=== PATIENT | male | born 1970 | race Caucasian/White ===

== ENCOUNTER 2022-11-30 11:48 | Emergency (ER) | payer OTHER, SELFPAY ==
--- NOTE | ~2022-11-30 | XR_ITS ---
AP, oblique, and lateral views of the left third toe CLINICAL HISTORY: Injury FINDINGS: No fracture or dislocation seen. Osseous alignment is unremarkable. Joint spaces are preser leroy. Soft tissues are unremarkable. IMPRESSION: Unremarkable exam. Reviewed, dictated and finalized at location . IMPRESSION: Unremarkable exam.
[2022-11-30 11:57] VITALS: BP 132/94; PULSE 94; RESP 16; TEMP 36.3; O2SAT 100
--- NOTE | 2022-11-30 11:59 | ED.LOWEXIN ---
HPI - Extremity Injury (Lower) General Chief Complaint: Extremity Injury, Lower Stated Complaint: Injured middle toe on left foot Source: patient and RN notes reviewed Mode of arrival: ambulatory Limitations: no limitations History of Present Illness HPI Narrative: Patient is a 52-year-old male who presents to the [facility] with complaints left middle toe pain. Patient states that he accidentally kicked a brick stair when walking into his house. Patient states that he was not wearing shoes at the time. He reports constant aching and throbbing to the left middle toe. There is notable bruising to the toe and slight swelling. Sensation is intact and he denies numbness. Cap refill is normal. Related Data Home Medications Medication Instructions Recorded Confirmed No Home Medications 11/30/22 11/30/22 Allergies Allergy/AdvReac Type Severity Reaction Status Date / Time No Known Allergies Allergy Verified 11/30/22 12:07 Review of Systems Review of Systems: CONSTITUTIONAL: Denies fever, chills, or sweats. EYES: Denies visual changes, redness, or discharge. ENT: Denies otalgia and sore throat CARDIOVASCULAR: Denies chest pain, palpitations, or edema. RESPIRATORY: Denies cough or dyspnea. GASTROINTESTINAL: Denies abdominal pain, nausea, vomiting, or diarrhea. GENITOURINARY: Denies dysuria or hematuria. SKIN: Denies rash or itching. MUSCULOSKELETAL: Denies back pain or myalgia. Reports left middle toe pain. NEUROLOGIC: Denies headache, numbness, or weakness. Pertinent positives per HPI. PMFSH Comments At the time of my signature, I reviewed and agree with the nursing past medical, surgical, social, and family history. There is no relevant family history pertinent to the patient complaint. Exam Narrative: GENERAL: This is a well-nourished, well-developed patient, in no apparent distress. HEAD: normocephalic, atraumatic. EYES: PERRL. Sclera clear/white. Vision is grossly intact. EARS: External ears normal, auditory canals clear and without drainage, TMs normal without perforation. Hearing grossly intact. NOSE: External nose normal with no obvious nasal discharge, nares without redness, no rhinorrhea. THROAT: Mucous membranes moist, posterior pharynx clear. NECK: Neck supple, non-tender without lymphadenopathy, masses or thyromegaly. CARDIOVASCULAR: Regular rate and rhythm without murmurs, gallops, or rubs. RESPIRATORY: Clear to auscultation. Breath sounds equal bilaterally. No wheezes, rales, or rhonchi. GASTROINTESTINAL: Abdomen soft, non-tender, nondistended. Bowel sounds are active. No hepato-splenomegaly, or palpable masses. No guarding. SKIN: warm, intact with no suspicious lesions or rash, good texture and turgor. NEURO: awake, alert, and oriented to person, place and time. There were no obvious focal neurologic abnormalities. EXTREMITIES: No clubbing, cyanosis, or edema. Left middle toe tenderness, bruising, and mild swelling. Limited ROM of the left middle toe. Cap refill is normal. Sensation intact. BACK: Nontender without deformity or crepitance. No flank tenderness. Course Course Level of Care: Express Care Visit Vital Signs Vital signs: Vital Signs Temperature 97.4 F L 11/30/22 11:57 Pulse Rate 94 11/30/22 11:57 Respiratory Rate 16 11/30/22 11:57 Blood Pressure 132/94 H 11/30/22 11:57 Pulse Oximetry 100 11/30/22 11:57 Temperature 97.4 F L 11/30/22 11:57 Pulse Rate 94 11/30/22 11:57 Respiratory Rate 16 11/30/22 11:57 Blood Pressure 132/94 H 11/30/22 11:57 Pulse Oximetry 100 11/30/22 11:57 Oxygen Delivery Room Air 11/30/22 12:00 Reviewed MDM - Extremity Injury (Lower) MDM Narrative Medical decision making narrative: Use the RICE method at home. May take ibuprofen and/or Tylenol if needed. If symptoms persist in 1 week after conservative treatment, follow-up with specialist. Differential Diagnosis Differential diagnosis: Likely fracture of toe and othe
== END 2022-11-30 12:41 | disposition home or self-care (01) ==
PROVIDERS: Emergency Provider Nurse Practitioner; PCP Internal Medicine
DX: S90.122A Contusion of left lesser toe(s) without damage to nail, initial encounter (principal); W22.09XA Striking against other stationary object, initial encounter
CPT/HCPCS: 73660; 99213; G0463

== ENCOUNTER 2023-01-30 00:45 | Day surgery (SDC) | payer OTHER, SELFPAY ==
[2023-01-20 16:41] VITALS: BMI 23.8
--- NOTE | 2023-01-30 08:17 | WPDANESEPPF ---
Anes - Initial Pre Proc Eval Procedure: Operation Date: 01/30/23 09:30 Proposed Procedures p Colonoscopy - Akbar Washburn MD Date/Time: 01/30/23 08:17 Surgeon: Akbar Washburn MD Pre Op Diagnosis: family hx colon ca Patient Data Age: 52 Gender: M Height: 1.91 m Weight: 86.5 kg Allergies Allergy/AdvReac Type Severity Reaction Status Date / Time No Known Allergies Allergy Verified 01/30/23 08:23 Home Medications Medication Instructions Recorded Confirmed Type tadalafil 20 mg tablet (Cialis) 20 mg PO DAILY PRN sexual activity 12/08/22 01/30/23 Rx #8 tabs rosuvastatin 5 mg tablet 5 mg PO DAILY #90 tabs 01/03/23 01/30/23 Rx Adrenatone 1 dose PO DAILY 01/20/23 01/30/23 History Chrysin 1 dose PO DAILY 01/20/23 01/30/23 History Prostate Ute 1 cap PO DAILY 01/20/23 01/30/23 History Vitamin D2 1 dose PO DAILY 01/20/23 01/30/23 History arginine (L-arginine) 1 dose PO DAILY 01/20/23 01/30/23 History omega-3 fatty acids 1 cap PO DAILY 01/20/23 01/30/23 History zinc 1 dose PO DAILY 01/20/23 01/30/23 History Patient hx anesthesia problems: none Family hx anesthesia problems: none Results Review: All pre-operative results and documents have been reviewed as part of the pre-operative evaluation. [facility] Past Medical History Medical History (Updated 01/30/23 @ 08:22 by Akbar Washburn MD) GERD (gastroesophageal reflux disease) Hyperlipidemia Hypertension Migraine Surgical History Surgical History H/O knee surgery History of appendectomy Undescended testicle Family History Family History Father Hypertension Cerebrovascular accident Heart disease Mother Colon cancer Grandparent Alcoholism Cerebrovascular accident Breast cancer Testicle cancer Social History Social History Years smoked: 13 Smoking status: Former smoker Tobacco type: smokeless tobacco Smokeless tobacco user: chewing tobacco Smoking end date: 05/22/06 Alcohol intake: current Substance use: never Substance use type: does not use Lack of Transportation: No Lack of Food: Never True Current Housing: I Have Housing Concerned About Future Housing: No Difficulty Paying Gas/Electric Bills: No Difficulty Paying for Meds: No Currently Unemployed: No Education: Associate Degree Difficulty w/ Childcare or Family Care: No Living arrangements: with family Spiritual care concerns: No Anes - Eval Final PreProcedure Day of Procedure 01/30/23 08:17 Patient weight: normal Heart: regular rate and rhythm Lungs: clear to auscultation and normal air movement Airway: Mallampati scale class II Neurological: alert and oriented Last oral intake: >/= 8 hours ASA classification: II Emergent: no Anesthetic plan: proceed Anesthesia type and monitoring: general GIVS and standard monitoring Results Review: All pre-operative results and documents have been reviewed as part of the pre-operative evaluation. Informed Consent: The patient's anesthetic plan and its attendant risks and benefits were discussed with the patient/family/POA. Questions were solicited and answers provided to the satisfaction of the patient/family/POA.
--- NOTE | 2023-01-30 08:20 | PM.HPGS ---
History of Present Illness History of Present Illness Consent: Risks, benefits, and alternatives have been discussed and questions answered. Patient agrees to proceed with procedure. Chief complaint: family hx colon ca Narrative: Fred Nguyễn is a 52 year old male Presents for screening colonoscopy. Patient reports his mother had colon cancer. Patient states that his own weight appetite and bowel movements are normal. He denies abdominal pain. He has had no bleeding. Review of Systems Review of Systems: Review of systems noncontributory. [facility] Past Medical History Medical History (Updated 01/30/23 @ 08:22 by Akbar Washburn MD) GERD (gastroesophageal reflux disease) Hyperlipidemia Hypertension Migraine Surgical History Surgical History H/O knee surgery History of appendectomy Undescended testicle Family History Family History Father Hypertension Cerebrovascular accident Heart disease Mother Colon cancer Grandparent Alcoholism Cerebrovascular accident Breast cancer Testicle cancer Social History Social History Years smoked: 13 Smoking status: Former smoker Tobacco type: smokeless tobacco Smokeless tobacco user: chewing tobacco Smoking end date: 05/22/06 Alcohol intake: current Substance use: never Substance use type: does not use Lack of Transportation: No Lack of Food: Never True Current Housing: I Have Housing Concerned About Future Housing: No Difficulty Paying Gas/Electric Bills: No Difficulty Paying for Meds: No Currently Unemployed: No Education: Associate Degree Difficulty w/ Childcare or Family Care: No Living arrangements: with family Spiritual care concerns: No Meds Home Medications and Allergies Home Medications Medication Instructions Recorded Confirmed Type tadalafil 20 mg tablet (Cialis) 20 mg PO DAILY PRN sexual activity 12/08/22 01/20/23 Rx #8 tabs rosuvastatin 5 mg tablet 5 mg PO DAILY #90 tabs 01/03/23 01/20/23 Rx Adrenatone 1 dose PO DAILY 01/20/23 01/20/23 History Chrysin 1 dose PO DAILY 01/20/23 01/20/23 History Prostate Noonday 1 cap PO DAILY 01/20/23 01/20/23 History Vitamin D2 1 dose PO DAILY 01/20/23 01/20/23 History arginine (L-arginine) 1 dose PO DAILY 01/20/23 01/20/23 History omega-3 fatty acids 1 cap PO DAILY 01/20/23 01/20/23 History zinc 1 dose PO DAILY 01/20/23 01/20/23 History Allergies Allergy/AdvReac Type Severity Reaction Status Date / Time No Known Allergies Allergy Verified 01/30/23 08:23 Exam Narrative: Physical exam reveals patient to be alert. Vital signs stable. HEENT exam is unremarkable. Patient is anicteric. Lungs are clear to auscultation and percussion. Heart is without murmur or extra sounds. Abdomen bowel sounds are present soft nontender with no organomegaly. Digital external rectal exam is normal. Assessment and Plan Assessment and plan (1) Encounter for screening colonoscopy: Code(s): Z12.11 - Encounter for screening for malignant neoplasm of colon Status: Acute (2) Family history of colon cancer in mother: Code(s): Z80.0 - Family history of malignant neoplasm of digestive organs Status: Acute Assessment and Plan: Patient's mother has had colon cancer. For this reason patient presents for screening colonoscopy. Advised colonoscopy at 5 year intervals. Further recommendations may be given after endoscopy.
[2023-01-30 08:24] VITALS: BP 127/81; PULSE 80; RESP 17; TEMP 36.2; O2SAT 100; BMI 22.8
[2023-01-30] MEDS: LACTATED RINGERS 1,000 ML 150 ML IV CONT (08:31)
[2023-01-30 09:37] VITALS: BP 129/86; PULSE 79; RESP 18; O2SAT 100
[2023-01-30 09:47] VITALS: BP 148/79; PULSE 76; RESP 19; O2SAT 100
[2023-01-30 09:57] VITALS: BP 126/82; PULSE 60; RESP 21; O2SAT 100
== END 2023-01-30 10:03 | disposition home or self-care (01) ==
PROVIDERS: PCP Physician Assistant; Visit Provider Internal Medicine Gastroenterology
PROC: 0DJD8ZZ Inspection of Lower Intestinal Tract, Via Natural or Artificial Opening Endoscopic (ICD-10-PCS; CPT 45378; principal; 2023-01-30 09:30)
DX: Z12.11 Encounter for screening for malignant neoplasm of colon (principal); K64.8 Other hemorrhoids; K21.9 Gastro-esophageal reflux disease without esophagitis; E78.5 Hyperlipidemia, unspecified; I10 Essential (primary) hypertension; F17.220 Nicotine dependence, chewing tobacco, uncomplicated; Z80.0 Family history of malignant neoplasm of digestive organs
CPT/HCPCS: 45378; J2704; J7120

== ENCOUNTER 2023-09-18 10:36 | Outpatient (CLI) | payer OTHER, SELFPAY | END 2023-09-18 10:37 | disposition home or self-care (01) | PROVIDERS: PCP Physician Assistant; Visit Provider Otolaryngology | DX: H90.3 Sensorineural hearing loss, bilateral (principal); H61.23 Impacted cerumen, bilateral; J31.0 Chronic rhinitis | CPT/HCPCS: 92557; 92567 ==

== ENCOUNTER 2023-12-13 12:00 | Emergency (ER) | payer OTHER, SELFPAY ==
--- NOTE | 2023-12-13 12:06 | ED.URI ---
HPI - URI/Sore Throat General Chief Complaint: Upper Respiratory Infection Stated Complaint: SINUS CONGESITON Time Seen by Provider: 12/13/23 12:18 Source: patient and RN notes reviewed Mode of arrival: ambulatory Limitations: no limitations History of Present Illness HPI Narrative: 53-year-old male presents with concern for sinus pain, oral/gingival and that started yesterday. He reports he has a headache. He reports mild runny nose. Reports body aches. Denies cough, fever, chills, sweats. Reports he took Benadryl without relief. MD elicited complaint: sinus pain Related Data Allergies Allergy/AdvReac Type Severity Reaction Status Date / Time No Known Allergies Allergy Verified 12/13/23 12:17 Review of Systems Review of Systems: CONSTITUTIONAL: Denies malaise, chills, sweats, or fever. EYES: Denies visual changes, redness, or discharge. ENT: Reports rhinorrhea, pain. Denies congestion, otalgia and sore throat. CARDIOVASCULAR: Denies chest pain, palpitations, or edema. RESPIRATORY: Denies cough. Denies dyspnea. GASTROINTESTINAL: Denies abdominal pain, nausea, vomiting, diarrhea SKIN: Denies rash or itching. MUSCULOSKELETAL: Reports myalgia. NEUROLOGIC: Denies headache. All systems reviewed & are unremarkable except as noted in HPI and below PMFSH Past Medical History Medical History GERD (gastroesophageal reflux disease) Hyperlipidemia Hypertension Migraine Surgical History Surgical History H/O knee surgery History of appendectomy Undescended testicle Family History Family History Father Hypertension Cerebrovascular accident Heart disease Mother Colon cancer Grandparent Alcoholism Cerebrovascular accident Breast cancer Testicle cancer Social History Social History Years smoked: 13 Smoking status: Former smoker Tobacco type: smokeless tobacco Smokeless tobacco user: chewing tobacco Smoking end date: 05/22/06 Alcohol intake: current Substance use: never Substance use type: does not use Lack of Transportation: No Lack of Food: Never True Current Housing: I Have Housing Concerned About Future Housing: No Difficulty Paying Gas/Electric Bills: No Difficulty Paying for Meds: No Currently Unemployed: No Education: Associate Degree Difficulty w/ Childcare or Family Care: No Living arrangements: with family Spiritual care concerns: No Comments At time of signature, agree with nursing past medical, surgical, social and family history. There is no relevant family history pertinent to the presenting complaint Exam Narrative: GENERAL: Well-appearing, well-nourished, and in no acute distress. HEAD: Normocephalic EYES: PERRLA, conjunctivae clear ENT: Nares clear, turbinates edematous and erythematous. Mucous membranes moist. TM pearly hagan with dull light reflex bilaterally; no tragal tenderness. Oropharynx not erythematous without lesions. Tonsils not enlarged and without exudate, no drooling, no hoarseness, no trismus, uvula midline. NECK: Supple. No lymphadenopathy CHEST: Clear to auscultation, breath sounds equal. No wheezing, rhonchi, rales, or stridor. No respiratory distress, speaks in full sentences. HEART: Regular rate and rhythm. No murmur heard. SKIN: Warm, dry, no rash. NEURO: Alert and oriented x3. PSYCH: Normal mood and affect Course Course Emergency Course: Patient is aware of diagnosis, understands and agrees to treatment plan. Anticipatory guidance given. Patient agrees to follow-up as directed and is aware of reasons to seek care at the emergency department. Portions of this record may have been created with voice recognition software Level of Care: Express Care Visit Vital Signs Vital signs: Reviewed. MDM
[2023-12-13 12:12] VITALS: BP 136/90; PULSE 106; RESP 16; TEMP 36.9; O2SAT 100
== END 2023-12-13 12:44 | disposition home or self-care (01) ==
PROVIDERS: Emergency Provider Nurse Practitioner; PCP Physician Assistant
DX: J06.9 Acute upper respiratory infection, unspecified (principal); Z20.822 Contact with and (suspected) exposure to COVID-19; Z87.891 Personal history of nicotine dependence; K21.9 Gastro-esophageal reflux disease without esophagitis; E78.5 Hyperlipidemia, unspecified; I10 Essential (primary) hypertension
CPT/HCPCS: 87426; 99213; G0463

== ENCOUNTER 2024-09-04 00:09 | Day surgery (SDC) | payer OTHER, SELFPAY ==
[2024-08-29 12:53] VITALS: BMI 23.4
--- NOTE | 2024-08-29 12:59 | PC.NURSE ---
Report to the Outpatient Waiting Room, entrance under the green pavilion located off [facility], at time _1pm_ on date _[id number]_. Planned Procedure Time: _2pm_.? Time changes happen often and if your time is changed the preop area will call you the afternoon before. - You and your visitor will be asked to self-screen and do not enter if you have any COVID symptoms. Please call surgeon if you need to reschedule. - A mask is optional within the hospital at this time. No smoking, or chewing tobacco (or any form of nicotine). Ok for breakfast and a light lunch. Take only the following medications with a SIP of water on the morning of surgery: ___Continue medications as usual.____ DO NOT STOP ANY OF YOUR OTHER PRESCRIPTION MEDICATIONS PRIOR TO SURGERY EXCEPT THE FOLLOWING Medications to discontinue per physician Date to take last dose Please no make-up, nail georgian, hairspray, perfume, deodorant, or body powder the day of surgery.? No jewelry (including any body piercings) or valuables the day of surgery, leave them at home.? Please take a shower or bath the night before, or the morning of, surgery with an antibacterial soap.? Wear comfortable, loose fitting clothing.? - Jewelry must be removed prior to entering the operating room.? Rings and piercings that are not removed may be cut off. - The hospital will not accept responsibility for valuables.? - Please leave all valuables, including medications, at home the day of surgery. If you are going home after surgery, a licensed professional driver must drive you home.? - NO public transportation without another adult if you receive anesthesia. - We recommend that an adult stay with you for 24 hours following discharge. - We also recommend that you do not drive, make important decision, drink alcoholic beverages, or take any drugs that were not prescribed by your health care provider for at least 24 hours after your discharge time. Follow any additional instructions given to you from your surgeon. Telephone instructions given to __Greg__and asked if any additional questions and then verbalized understanding. Patient advised to call surgeon office or pre surgery nurse liaison [phone] if any additional questions.
--- OUTSIDE RECORDS SUMMARY | 2024-09-04 00:12 | XMS_ITS | Continuity of Care Document ---
Author Organization [facility] Address [address] [place] [address] Phone Care Team Providers Care Auto Service Representative Name Role Phone Unavailable Unavailable Unavailable Advance Directives Directive Yes / No Effective Date File Name No Information Encounters Encounter Description Practice Location Reason(s) For Visit Diagnoses Date Provider Providers Copied on Encounter [facility], [address], [place], [id number], [place] tel:[phone] [facility] No Information 9200 4 No Information Family History Family Member Type Diagnosis Age At Onset No Information Payers Payer name Insurance type Covered green party ID Authoriza tion(s) No Information Social History Type Description Quantity Date Captured Comments Sex Male Smoking Status No Information Chief Complaint And Reason For Visit No Information Reason For Referral Reason For Referral No Information History Of Present Illness Encounter Date Complaint History Of Prese nt Illness No Information Functional Status Date Functional Assessmen t No Information Instructions Date Instruction Additional Infor mation No Information Assessments Type Assessment Date No Information Patient Care Teams Name Effective Dates (start - stop) Status Members No Information
--- OUTSIDE RECORDS SUMMARY | 2024-09-04 00:12 | XMS_ITS | Referral Summary ---
Author Organization [facility] Address [address] [place] [address] Care Team Providers Care Legal Support Assistant Name Role Phone No, Physician Primary Care Provider [phone] Allergies No known active allergies Medications amoxicillin-cla vulanate (AUGMENTIN) 875-125 mg per tablet take 1 tablet by oral route every 12 hours 14 0 6 Active fluticasone (FLONASE) 50 mcg/actuation nasal spray inhale 1 spray by intranasal route 2 times every day in each nostril as needed 1 Bottle 0 6 Active Active Problems No known active problems Immunizations Immunization Administration Dates Next Due Influenza, Quadrivalent, Spl it, Preservative Free, Intramuscular 05/01/2019 Social History Tobacco Use Types Packs/Day Years Used Date Smoking Tobacco: Never Assessed Sex and Gender Information Value Date Recorded Sex Assigned at Not on file 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[employer] Gender Identity Not on file Sexual Orientation Not on file Last Filed Vital Signs Vital Sign Reading Time Taken Comments Blood Pressure 140/90 01/02/2016 6:19 PM CDT Pulse 80 01/02/2016 6:19 PM CDT Temperature - - Respiratory Rate - - Oxygen Saturation 99% 01/02/2016 6:19 PM CDT Inhaled Oxygen Concentration - - Weight 84.4 kg (186 lb) 01/02/2016 6:19 PM CDT Height 190.5 cm (6' 3 ) 01/02/2016 6:19 PM CDT Body Mass Index 23.25 01/02/2016 6:19 PM CDT Plan of Treatment Not on file Insurance [employer] [facility] Care Teams Legal Support Assistant Relationship Specialty Start Date End Date No, Physician PCP - General 05/01/19
--- OUTSIDE RECORDS SUMMARY | 2024-09-04 00:12 | XMS_ITS | Encounter Summary ---
Author Organization [facility] Address [address] [place] [address] Phone Care Team Providers Care Postal Transportation Clerk Name Role Phone Albina Carrion MD Primary Care Provider [phone] Manny Lagos MD Primary Care Provider [phone] Reason for Visit * Reason Comments Medication Refill Encounter Details Date Type Department Care Team (Late st Contact Info) Description 09/09/2021 Refill [facility] - Primary Care - [place] [address] [place] [address] Albina Carrion MD [address] [place] [address] Medication Refill Social History Tobacco Use Types Packs/Day Years Used Date Smoking Tobacco: Never Smokeless Tobacco: Former Chew Quit: 09/15/2007 Alcohol Use Standard Drinks/Week Comments Yes 4 (1 standard drink = 0.6 oz pur e alcohol) PHQ-2 Answer Date Recorded Total Score - Questions 1-9 0 10/21 Sex and Gender Information Value Date Recorded Sex Assigned at Not on file Legal Sex Male 12:18 PM CDT Gender Identity Not on file Sexual Orientation Not on file COVID-19 Exposure Response Date Recorded In the last 10 days, have yo u been in contact with someone who was confirmed or suspected to have Coronavirus/COVID-19? No / Unsure 09/06/2021 3:03 PM CDT documented as of this encounter Miscellaneous Notes * Telephone Encounter - Glo Flores RN - 09/09/2021 8:14 AM CDT Medication failed the protocol, provider to review and approve the medication order if appropriate. Requested Prescriptions Pending Prescriptions Disp Refills Tadalafil, PAH, 20 MG Tablet [Pharmacy Med Name: TADALAFIL 20 MG TABLET] 3 Tablet 5 Sig: TAKE 1 TAB BY MOUTH DAILY NEEDED FOR ERECTILE DYSFUNCTION. Not Delegated - Phosphodiesterase Inhibitors-Pulmonary Hypertension Protocol Failed - 09/09/2021 6:21 AM Failed - This refill cannot be delegated Failed - Active on medication list Passed - Visit with relevant provider in past 12 months or upcoming 90 days Recent Visits Date Type Provider Dept 09/06/21 Office Visit Albina Carrion MD [facility] Showing recent visits within past 365 days and meeting all other requirements Future Appointments No visits were found meeting these conditions. Showing future appointments within next 90 days and meeting all other requirements documented in this encounter Plan of Treatment Not on file documented as of this encounter Visit Diagnoses Diagnosis Erectile dysfunction, unspecified erectile dysfunction type documented in this encounter Additional Health Concerns Assessment Noted Time PHQ-9 Depression Total Score: 0 11/11/19 8:00 AM CDT documented as of this encounter Care Teams Postal Transportation Clerk Relationship Specialty Start Date End Date Albina Carrion MD [address] [place] [address] PCP - General Family Medicine 09/14/18 08/21/22 Manny Lagos MD [address] [address] PCP - General Internal Medicine 08/22/22 documented as of this encounter
--- OUTSIDE RECORDS SUMMARY | 2024-09-04 00:12 | XMS_ITS | Clinical Summary ---
Author Organization [facility] Address [address] [place] [address] Phone Care Team Providers Care Educational Sign Language Interpreter Name Role Phone Manny Lagos MD Primary Care Provider [phone] Allergies No known active allergies Medications Tadalafil, PAH, 20 MG TabletIndication s:Erectile dysfunction, unspecified erectile dysfunction type Take 20 mg by mouth daily as needed (Erectile dysfunction ). 30 Tablet 5 08/22/2022 Active Active Problems Problem Noted Date Diagnosed Date Anxiety 05/12/2020 H/O: hypertension 09/14/2018 Erectile dysfunction 09/14/2018 Mixed hyperlipidemia 09/14/2018 Immunizations Immunization Administration Dates Next Due Covid-19, Mrna, Lnp-s, Pf, 3 0 Mcg/0.3 Ml Dose, Royce-sucrose (Pfizer ochoa top) 10/26/2021 Influenza Vaccine, Quadrivalent, PF 02/06/2020,1 07/02/2018 TDAP Vaccine 11/11/2019 Family History Medical History Relation Name Comments Dementia Father Hypertension Father Stroke Father Colon Cancer Mother Cancer Paternal Uncle Colon Relation Name Status Comments Father Mother Alive Paternal Uncle Alive Social History Tobacco Use Types Packs/Day Years Used Date Smoking Tobacco: Never Smokeless Tobacco: Former Chew Quit: 09/15/2007 Alcohol Use Standard Drinks/Week Comments Not Currently 0 (1 standard drink = 0.6 oz pur e alcohol) PHQ-2 Answer Date Recorded Total Score - Questions 1-9 0 04/0 07/2022 Sex and Gender Information Value Date Recorded Sex Assigned at Not on file Legal Sex Male 12:18 PM CDT Gender Identity Not on file Sexual Orientation Not on file Last Filed Vital Signs Vital Sign Reading Time Taken Comments Blood Pressure 140/80 08/22/2022 2:03 PM CDT Pulse 104 08/22/2022 2:03 PM CDT Temperature 36.4 C (97.5 F) 08/22/2022 2:03 PM CDT Respiratory Rate 18 08/22/2022 2:03 PM CDT Oxygen Saturation 98% 08/22/2022 2:03 PM CDT Inhaled Oxygen Concentration - - Weight 85.3 kg (188 lb) 08/22/2022 2:03 PM CDT Height 190.5 cm (6' 3 ) 08/22/2022 2:03 PM CDT Body Mass Index 23.5 08/22/2022 2:03 PM CDT Plan of Treatment Health Maintenance Due Date Last Done Comments Hepatitis C Virus (HCV) Screening 1970 Hepatitis B Immunization (1 of 3 - 19+ 3-dose series) 1989 Colonoscopy 2015 Colorectal Cancer Screening 2015 Cologuard 2020 Immunochemical Fecal Occult Blood 2020 Pneumococcal Immunization (5 0+ years) (1 of 1 - PCV) 2020 Zoster Immunization (1 of 2) 2020 Influenza Immunization (#1) 01/21/202401/20, 05/01/2019 SARS-COV-2 Immunization ( season) 2024 10/26/2021, 09/16/2020, 08/24/2020 Respiratory Syncytial Virus (RSV) Immunization (Adult) (1 - 1-dose 75+ series) 2045 DTaP/Tdap/Td Immunization Discontinued 11/11/2019 Meningococcal Immunization (ACWY) Aged Out No longer eligible based on patient's age to complete this topic Rotavirus Immunization Aged Out No lo nger eligible based on patient's age to complete this topic Insurance [facility] [address] [id number] [facility] Care Teams Educational Sign Language Interpreter Relationship Specialty Start Date End Date Manny Lagos MD [address] [address] PCP - General Internal Medicine 08/22/22
--- OUTSIDE RECORDS SUMMARY | 2024-09-04 00:12 | XMS_ITS | Clinical Summary ---
Author Organization [facility] Address [address] [place] [address] Care Team Providers Care Bull Ladle Tender Name Role Phone No, Physician Primary Care Provider [phone] Allergies No known active allergies Medications amoxicillin-cla [...] Quadrivalent, Spl it, Preservative Free, Intramuscular 05/01/2019 Surgical History Surgery Date Site/Laterality Comments HERNIA REPAIR Hernia repair APPENDECTOMY Appendectomy Family History Medical History Relation Name Comments Cancer Other Family history of Cancer, unknown; Hypertension Other Family history of Hypertension; Relation Name Status Comments Other Social History Tobacco Use Types Packs/Day Years Used Date Smoking Tobacco: Never Assessed Sex and Gender Information Value Date Recorded Sex Assigned at Not on file 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
--- OUTSIDE RECORDS SUMMARY | 2024-09-04 00:12 | XMS_ITS | Encounter Summary ---
Author Organization [facility] Address [address] [place] [address] Phone Care Team Providers Care Tai Chi Instructor Name Role Phone Albina Carrion MD Primary Care Provider Manny Lagos MD Primary Care Provider [phone] Reason for Visit * Reason Comments Medication Refill Encounter Details Date Type Department Care Team (Late st Contact Info) Description 08/08/2020 Refill [facility] - [facility] - [place] [address] [place] [address] Albina Carrion MD [address] [place] [address] Medication Refill Social History Tobacco [...] on file Sexual Orientation Not on file documented as of this encounter Miscellaneous Notes * Telephone Encounter - Pinky Lopez RN - 08/10/2020 8:59 AM CDT Medication failed the protocol, provider to review and approve the medication order if appropriate. Requested Prescriptions Pending Prescriptions Disp Refills sertraline (ZOLOFT) 25 MG Tablet [Pharmacy Med Name: SERTRALINE HCL 25 MG TABLET] 90 Tablet 0 Sig: TAKE 1 TABLET BY MOUTH DAILY Not Delegated - Psychiatry: Antidepressants Failed - 08/08/2020 9:01 AM Failed - This refill cannot be delegated Passed - Valid encounter within last 12 months Past Office Visits Recent Outpatient Visits 3 months ago Hyperlipidemia, unspecified hyperlipidemia type [facility] Albina Carrion MD 9 months ago Physical exam, annual (Adult) [facility] Albina Carrion MD 1 year ago Acute midline thoracic back pain [facility] Ellie Rubin October, PAC 1 year ago Physical exam, annual (Adult) [facility] Albina Carrion MD Upcoming Appointments Future Appointments In 2 months [facility] In 3 months Albina Carrion MD [facility] HOURLY SHIFT MANAGER - Recent and Past Visits Recent Visits Date Type Provider Dept 05/12/20 Office Visit Albina Carrion MD [facility] 11/11/19 Office Visit Albina Carrion MD [facility] Showing recent visits within past 460 days with a meds authorizing provider and meeting all other requirements Future Appointments No visits were found meeting these conditions. 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
[2024-09-04 15:50] VITALS: BP 161/93; PULSE 115; RESP 16; TEMP 36.3; O2SAT 100
--- NOTE | 2024-09-04 16:30 | WPDHPUPDATE1 ---
History and Physical Update Update Date/Time: 09/04/24 16:30 History and Physical has been reviewed, including an updated exam of the patient. There are NO changes in the patient's condition. Risks, benefits, and alternatives have been discussed and questions answered. Patient agrees to proceed with procedure.
[2024-09-04 16:35] VITALS: BP 135/65; PULSE 98; RESP 20; O2SAT 98
[2024-09-04 16:45] VITALS: BP 122/60; PULSE 98; RESP 16; O2SAT 98
[2024-09-04] MEDS: BUPIVACAINE/EPINEPHRINE 0.5% 50 ML VIAL 20 ML INFILTRATE (16:46)
[2024-09-04 16:55] VITALS: BP 129/66; PULSE 96; RESP 16; O2SAT 98
[2024-09-04 17:05] VITALS: BP 133/69; PULSE 92; RESP 16; O2SAT 97
[2024-09-04 17:16] VITALS: BP 130/86; PULSE 80; RESP 16; TEMP 36.6; O2SAT 99
--- NOTE | 2024-09-04 17:18 | P.OP_ITS ---
Procedure Note - Detailed Date of Procedure 09/04/24 Pre-op Diagnosis skin cyst of lower back Post-op Diagnosis Same Procedure Performed Excision 2 cm skin cyst of the back with no margin Surgeon Zion Osborne MD Anesthesia Local (0.5% Marcaine with epinephrine) Indications Patient has had a cyst in the left lower back for many years. Recently it seems to be tender and hurts when he bumps it against something. He was seen in the office and has a 1.5 or 2 cm skin cyst. He is taken to surgery now for exc ision. Findings Skin cyst, measured 2 cm in length Description of Procedure Patient was placed in right lateral decubitus position. The area of the cyst to been marked preoperatively. The left lower back was prepped and draped. The proposed elliptical incision was marked on the skin. Local was infiltrated in the area of the anticipated incision and into the subcutaneous tissues. 0.5% Marcaine with epinephrine was used. Incision was made and the skin was divided throughout the entire ellipse. We then dissected around the cyst in the subcutaneous. The capsule the cyst was cut from the cyst in the posterior a medial aspect. I went back and excised the capsule which was easily seen in the wound. The cyst was measured and sent to pathology in formalin. The wound was made hemostatic with the cautery. The subcu was closed with interrupted 4-0 Vicryl. Some subcuticular interrupted 4-0 Vicryl skin stitches were placed. The skin was finally closed with a running 4-0 Monocryl skin suture. The wound was dressed with Exofin surgical adhesive. Patient returned to outpatient surgery in good condition. Sponge and needle counts were correct x2. Estimated Blood Loss -5 Drains No Packing No Pathology Yes (Skin cyst) Complications None Condition Stable Disposition Same day [facility] Billing Surgery - Charge Forward: Surgery Billing (Excision 2 cm skin cyst of the back with no margin.)
== END 2024-09-04 17:32 | disposition home or self-care (01) ==
PROVIDERS: PCP Internal Medicine; Visit Provider Surgery
PROC: (CPT 11402; principal; 2024-09-04 15:30)
DX: L72.0 Epidermal cyst (principal); E78.5 Hyperlipidemia, unspecified; I10 Essential (primary) hypertension; K21.9 Gastro-esophageal reflux disease without esophagitis; Z98.890 Other specified postprocedural states; Z87.891 Personal history of nicotine dependence; Z80.3 Family history of malignant neoplasm of breast; Z80.43 Family history of malignant neoplasm of testis; Z80.0 Family history of malignant neoplasm of digestive organs; Z82.49 Family history of ischemic heart disease and other diseases of the circulatory system
CPT/HCPCS: 11402; 88305

== ENCOUNTER 2025-04-11 11:34 | Emergency (ER) | payer OTHER, SELFPAY ==
--- NOTE | ~2025-04-11 | XR_ITS ---
EXAMINATION: XR tibia fibula RT 2V DATE: 04/11/2025 12:04 INDICATION: Injury TECHNIQUE: Right leg x-ray were obtained. COMPARISON: None. FINDINGS: No displaced fracture lucency or aggressive bone lesion. No suspicious radiopaque foreign body seen. IMPRESSION: 1. No displaced fracture lucency. Reviewed, dictated and finalized at location A. BASE SUPPORT
[2025-04-11 11:43] VITALS: BP 136/91; PULSE 73; RESP 14; TEMP 36.9; O2SAT 100
--- NOTE | 2025-04-11 12:02 | ED_ITS ---
HPI - Extremity Injury (Lower) General Chief Complaint: Extremity Injury, Lower Stated Complaint: R LOWER LEG INJURY Time Seen by Provider: 04/11/25 11:55 Source: patient Mode of arrival: ambulatory Limitations: no limitations History of Present Illness HPI Narrative: Fred is a 54-year-old male patient presenting to the clinic today with complaints of right proximal anterior leg injury. He reports they were u nloading some tables and 1 table slipped off on to the ramp and hit the patient and the proximal anterior right tib-fib. Has bruising and swelling over this area with tenderness to palpation. Does also have an abrasion to this area. Last tetanus shot was in 2019 Related Data Home Medications ?Medication ?Instructions ?Recorded ?Confirmed ?Last Taken ?Type rosuvastatin 5 mg tablet mg 04/11/25 Unknown History Allergies Allergy/AdvReac Type Severity Reaction Status Date / Time No Known Allergies Allergy Verified 04/11/25 11:36 Review of Systems Review of Systems: Pertinent positives per HPI. Patient denies any fever, chills, rash, headache, visual changes, dizziness, cough, runny nose, sore throat, shortness of breath, chest pain, palpitations, nausea, vomiting, diarrhea, constipation, abdominal pa in, or any urinary issues. [facility] Past Medical History Medical History BMI 22.0-22.9, adult GERD (gastroesophageal reflux disease) Hypertension Hyperlipidemia Migraine Surgical History Surgical History H/O excision of mass 09/04/24 Excision 2 cm skin cyst of the back with no margin Dr. Osborne H/O knee surgery History of appendectomy Undescended testicle Family History Family History Father Hypertension Cerebrovascular accident Heart disease Mother Colon cancer Grandparent Alcoholism Cerebrovascular accident Breast cancer Testicle cancer Social History Social History Social History: Caffeine-daily Years smoked: 13 Smoking status: Former smoker Tobacco type: smokeless tobacco Smokeless tobacco user: chewing tobacco Second hand tobacco smoke exposure: No Smoking end date: 05/22/06 Alcohol intake: current Alcohol use details: occasionally Substance use: never Substance use type: does not use Do You Feel Safe in your Home?: Yes Lack of Transportation: No Lack of Food: Never True Current Housing: I Have Housing Concerned About Future Housing: Decline to Answer Difficulty Paying Gas/Electric Bills: Decline to Answer Difficulty Paying for Meds: Decline to Answer Currently Unemployed: Decline to Answer Difficulty w/ Childcare or Family Care: Decline to Answer Living arrangements: with family Occupation/Education: occupation 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 There is no relevant family history pertinent to the patient complaint. Exam Narrative: General: Well-developed, well nourished, in no apparent distress Head: Normocephalic, atraumatic. Cardio: Regular rate and rhythm, s1 and s2 normal, no murmur appreciated. Resp: Clear to auscultation bilaterally, no rhonchi, rales, wheezing or rubs. Musculoskeletal: No deformity, bruising with swelling to the right proximal anterior tib-fib just below the knee with abrasion, tender to palpation over this area, grossly normal range of motion, muscle strength strong and equal, peripheral pulse strong, no edema, no cyanosis, normal gait and station Course Course Emergency Course: Portions of this record may have been created with voice recognition software. Level of Care: Express Care Visit Vital Signs Vital signs: Vital Signs Temperature 36.9 C 04/11/25 11:43 Pulse Rate 73 04/11/25 11:43 Respiratory Rate 14 04/11/25 11:43 Blood Pressure 136/91 H 04/11/25 11:43 Pulse Oximetry 100 04/11/25 11:43 Oxygen Delivery Room Air 04/11/25 11:43 Temperature 36.9 C 04/11/25 11:43 Pulse Rate 73 04/11/25 11:43 Respiratory Rate 14 04/11/25 11:43 Blood Pressure 136/91 H 04/11/25 11:43 Pulse Oximetry 100 04/11/25 11:43 Oxygen Delivery Room Air 04/11/25 11:43 Vital signs reviewed MDM - Extremity Injury (Lower) MDM Narrative Medical decision making narrative: At the time of visit patient is resting comfortably on the exam table. Patient appears to be nontoxic. Complaints of right proximal anterior leg injury. He reports they were unloading some tables and 1 table slipped off on to the ramp and hit the patient and the proximal anterior right tib-fib. Has bruising and swelling over this area with tenderness to palpation. Does also have an abrasion to this area. Last tetanus shot was in 2019. Tetanus shot ordered. Diagnostics: X-ray of the right tib-fib was ordered and was negative for any sign of fracture or malalignment. Plan: Patient has a right anterior proximal tib-fib contusion/abrasion. Tetanus was updated in the clinic today. Errol wrap and ice pack was ordered. Supportive measures were discussed with the patient and they voiced understanding discharge instructions and agrees to treatment plan. Return precautions reviewed Differential Diagnosis Differential diagnosis: Likely acute internal derangement of knee and other (contusion, abrasion tib/fib fracture. ) Imaging Data Radiologist's impression: ITS Impressions Tibia/Fibula X-Ray 04/11/25 12:22 IMPRESSION: 1. No displaced fracture lucency. Discharge Plan Discharge Clinical Impression: Contusion of left lower leg, initial encounter, Abrasion Patient Disposition: Home Condition: Stable Instructions: Antibiotic Form, Contusion in Adults (ED), Abrasion (ED) Additional Instructions: X-ray of the right tib-fib is negative for any sign of fracture or malalignment. Rest, ice, elevate, and wear errol wrap as directed Tylenol/motrin for pain as discussed. Gradually bear weight Follow up with your PCP if symptoms persist more than 1 week. Patient Language: Serbian Prescriptions: No Action rosuvastatin 5 mg tablet tadalafil [Cialis] 20 mg tablet 20 mg PO DAILY PRN (Reason: sexual activity) Qty: 8 3RF Rx Instructions: administer approximately 30min before sexual activity; do not use more than 1 dose per 24hrs fluticasone propionate [Flonase Allergy Relief] 50 mcg/actuation spray,suspe nsion 2 spray intranasal DAILY Qty: 16 3RF Rx Instructions: administer into each nostril omeprazole 40 mg capsule,delayed release(DR/EC) 40 mg PO DAILY Qty: 30 3RF lisinopril 10 mg tablet 10 mg PO DAILY Qty: 90 2RF buspirone 7.5 mg tablet 7.5 mg PO BID Qty: 180 2RF lidocaine 5 % adhesive patch,medicated 1 patch topical DAILY Qty: 30 2RF Rx Instructions: leave on most painful area for up to 12 hrs Follow-up/Referrals: Mainor Anand, [Primary Care Provider, Internal Medicine] Stand Alone Forms: Work/School Release IP Time of Disposition: 12:27 Quality NIHSS Nursing Documentation ED NIHSS nursing documentation: reviewed/agree
[2025-04-11] MEDS: TETANUS,DIPHTHERIA,AC PERTUSSIS ADULT (0.5 ML) BOOSTRIX IM (12:21)
== END 2025-04-11 12:40 | disposition home or self-care (01) ==
PROVIDERS: Emergency Provider Nurse Practitioner Family; PCP Internal Medicine
DX: S80.11XA Contusion of right lower leg, initial encounter (principal); S80.811A Abrasion, right lower leg, initial encounter; W22.8XXA Striking against or struck by other objects, initial encounter; Y99.0 Civilian activity done for income or pay; Z23 Encounter for immunization; I10 Essential (primary) hypertension; E78.5 Hyperlipidemia, unspecified; K21.9 Gastro-esophageal reflux disease without esophagitis; Z87.891 Personal history of nicotine dependence
CPT/HCPCS: 73590; 90471; 90715; 99213; G0463